=== PATIENT | male | born 1995 | race Caucasian/White ===

== ENCOUNTER → 2021-11-03 11:50 | Outpatient (CLI) | payer OTHER, SELFPAY ==
[2021-11-04 08:34] LABS: Covid-19 Nasal PCR Sendout Lex NOT DETECTED
== END ==
PROVIDERS: Visit Provider Nurse Practitioner
DX: Z20.822 Contact with and (suspected) exposure to COVID-19 (principal)
CPT/HCPCS: C9803; U0004; U0005

== ENCOUNTER 2025-05-29 16:16 | Emergency (ER) | payer OTHER, SELFPAY ==
[2025-05-29 16:25] VITALS: BP 129/81; PULSE 64; RESP 18; TEMP 36.6; O2SAT 100; BMI 34.9
--- NOTE | 2025-05-29 16:30 | ECG_ITS ---
APPROVED REPORT Exam: Resting ECG HR:60 bpm ECG Measurements Heart Rate 60 AXES DC 199 P 13 QRSd 98 QRS 21 QT 423 T 30 QTc 424 Conclusion SINUS RHYTHM NONSPECIFIC T-WAVE ABNORMALITY BORDERLINE ECG UNCONFIRMED REPORT Normal sinus rhythm. No ST elevation or depression. Isolated mild T wave inversions in lead V4 and V5. Electronically signed by : TRENTON GABRIEL, 05/30/2025 00:59:34
[2025-05-29 16:39] VITALS: PULSE 64
--- OUTSIDE RECORDS SUMMARY | 2025-05-29 16:41 | XMS_ITS | Encounter Summary ---
Author Organization [facility] ([place], [place], [place], [place]) Address [address] [place] [address] Care Team Providers Care Laundry Pricing Clerk Name Role Phone Margareth Mrogan Primary Care Provider Unavailable Reason for Referral * Consultation (Routine) - New Request Specialty Diagnoses / Procedures Referred By Holly rock Referred To Contact Cardiology Diagnoses Chest pain Margareth Morgan PA [address] [place] [address] Phone: tel: fax: Dilcia Stern PA-C [address] [place] [phone] Phone: tel: fax: Referral ID Status Reason Start Date Expiration Date Visits Requested Visits Authorized [id number] New Request Specialty Services Required 05/21/2025 05/21/2026 1 1 Encounter Details Date Type Department Care Team (Late Contact Info) Description 05/21/2025 Outside Orders [facility] Cardiology - [address] [phone] Margareth Morgan PA [address] [place] [phone] Chest pain (Primary Dx) Social History Tobacco Use Types Packs/Day Years Used Date Smoking Tobacco: Never Assessed Sex and Gender Information Value Date Recorded Sex Assigned at Not on file Legal Sex Male 7:34 AM CDT Gender Identity Not on file Sexual Orientation Not on file documented as of this encounter Plan of Treatment Upcoming Encounters Date Type Department Care Team (Late st Contact Info) Description 06/06/2025 10:15 AM EDT Office Visit [facility] Cardiology - [place] [address] [place] [address] Dilcia Stern PA-C [address] [facility] [address] [place] [address] Scheduled Referrals Name Type Priority Associated Diagnoses Order Schedule Ambulatory referral to Cardiology Outpatient Referral Routine Chest pain Expected: 05/21/2025, Expires: 05/21/2026 documented as of this encounter Visit Diagnoses Diagnosis Chest pain- Primary Unspecified chest pain Anxiety- Primary Anxiety state, unspecified Memory impairment Memory loss Mycosis Other and unspecified mycoses documented in this encounter Care Teams Laundry Pricing Clerk Relationship Specialty Start Date End Date Margareth Morgan PA [address] [place] [address] PCP - General Physician Re Dye Hand 05/21/25 documented as of this encounter
--- OUTSIDE RECORDS SUMMARY | 2025-05-29 16:41 | XMS_ITS | Clinical Summary ---
Author Organization [facility] ([place], [place], [place], [place]) Address [address] [place] [address] Care Team Providers Care Log Grader Name Role Phone Margareth Morgan Primary Care Provider Unavailable Allergies No known active allergies Medications amLODIPine (NORVASC) 10 MG tablet Take 1 tablet (10 mg total) by mouth daily. Active atorvastatin (LIPITOR) 20 MG tablet Take 1 tablet (20 mg total) by mouth nightly. Active cetirizine (ZyrTEC) 10 MG tablet Take 1 tablet (10 mg total) by mouth daily. Active esomeprazole (NexIUM) 40 MG capsule Take 1 capsule (40 mg total) by mouth Daily (0600). Active famotidine (PEPCID) 20 MG tablet Take 1 tablet (20 mg total) by mouth 2 (two) times daily. Active FLUoxetine (PROzac) 40 MG capsule Take 1 capsule (40 mg total) by mouth daily. Active hydroCHLOROthia zide (HYDRODIURIL) 25 MG tablet Take 1 tablet (25 mg total) by mouth daily. Active hydrOXYzine (ATARAX) 25 MG tablet Take 1 tablet (25 mg total) by mouth every 8 (eight) hours as needed for itching Look-alike/S ound-alike medication. Active losartan (COZAAR) 25 MG tablet Take 1 tablet (25 mg total) by mouth daily. Active metFORMIN (GLUCOPHAGE) 500 MG tablet Take 1 tablet (500 mg total) by mouth daily with breakfast Look-alike/S ound-alike medication. Active metoprolol succinate (TOPROL-XL) 50 MG 24 hr tablet Take 1 tablet (50 mg total) by mouth daily. Active montelukast (SINGULAIR) 10 mg tablet Take 1 tablet (10 mg total) by mouth nightly. Active traZODone (DESYREL) 100 MG tablet Take 1 tablet (100 mg total) by mouth nightly. Active albuterol 90 mcg/actuation inhaler Inhale by mouth every 6 (six) hours as needed for wheezing. Active Active Problems Problem Noted Date Diagnosed Date Chest pain Anxiety Asthma Diabetes GERD (gastroesophageal reflux disease) Hearing loss HLD (hyperlipidemia) HTN (hypertension) Insomnia Memory impairment Mycosis Encounters Date Type Department Care Team Description 05/21/2025 Outside Orders [facility] Cardiology [address] [phone] Margareth Morgan PA Chest pain (Primary Dx) from Last 3 Months Social History Tobacco Use Types Packs/Day Years Used Date Smoking Tobacco: Never Smokeless Tobacco: Never Tobacco Cessation:Counseling Given: Not Answered Alcohol Use Standard Drinks/Week Comments Not Currently 0 (1 standard drink = 0.6 oz pur e alcohol) Sex and Gender Information Value Date Recorded Sex Assigned at Not on file Legal Sex Male 7:34 AM CDT Gender Identity Not on file Sexual Orientation Not on file Plan of Treatment Upcoming Encounters Date Type Department Care Team (Late st Contact Info) Description 06/06/2025 10:15 AM EDT Office Visit [address] [phone] Dilcia Stern PA-C [address] [facility] [address] [place] [address] Health Maintenance Due Date Last Done Comments Diabetic Kidney Health Evalu ation (KED) 1995 Diabetic Eye Exam 2005 Depression Screening (12+) 2007 Tobacco Cessation Counseling and Screening (12+) 2007 HIV Screening 2010 Hepatitis C Screening 2013 Pneumococcal Vaccine: 0-49 Y ears (1 of 2 - PCV) 2014 Lipid Panel 2015 Hemoglobin A1C 05/22/2025 COVID-19 VACCINE ( - 2024-2 6 season) 2025 10/16/2021, 03/12/2021, 02/19/2021 Influenza Vaccine (#1) 2025 09/03/2020 DTAP/TDAP/TD VACCINES (6 - T d or Tdap) 05/25/2028 05/25/2018, 06/28/2007, 03/04/1999, Additional history exists Insurance [facility] Care Teams Log Grader Relationship Specialty Start Date End Date Margareth Morgan PA [address] [place] [phone] PCP - General Physician Customer Care Coordinator 05/21/25
--- OUTSIDE RECORDS SUMMARY | 2025-05-29 16:41 | XMS_ITS | Referral Summary ---
Author Organization [email or web address] ([place], [place], [place], [place]) Address [address] [place] [address] Care Team Providers Care Director Oncology Name Role Phone Margareth Morgan Primary Care Provider Unavailable Encounters Date Type Department Care Team Description 05/21/2025 Outside Orders [facility] Cardiology - [address] [phone] Margareth Morgan PA Chest pain (Primary Dx) from Last 3 Months Allergies No known active allergies Medications amLODIPine [...] (hyperlipidemia) HTN (hypertension) Insomnia Memory impairment Mycosis Social History Tobacco Use Types Packs/Day Years [...] Description 06/06/2025 10:15 AM EDT Office Visit [facility] Cardiology - [place] [address] [place] [address] Dilcia Stern PA-C [address] [phone] Insurance [facility] [facility] Care Teams Director Oncology Relationship Specialty Start Date End Date Margareth Morgan PA [address] [place] [phone] PCP - General Physician Audio Visual Aids Director 05/21/25
[2025-05-29 16:57] LABS: Albumin Level 5.0 g/dl (3.5-5.0); Chloride 99 mmol/L (98-107); Potassium 3.5 mmoL/L (3.5-5.1); Sodium 138 mmol/L (136-145)
[2025-05-29 16:59] LABS: Blood Urea Nitrogen 13 mg/dl (9-20); Creatinine Clearance Estimated 132 mL/min (50-200); Creatinine,Serum 1.10 mg/dl (0.66-1.25); Estimated Glomerular Filt Rate 79 ml/min (>60); GFR (African American) 95 ML/MIN (>60)
[2025-05-29 17:00] LABS: Alanine Aminotransferase 38 U/L (12-78); Albumin/Globulin Ratio 1.5 (1.1-1.8); Alkaline Phosphatase 73 U/L (38-126); Anion Gap 13.5 mEq/L (5-15); Aspartate Amino Transferase 43 U/L (17-59); Bilirubin,Total 0.7 mg/dl (0.2-1.3); Calcium 10.1 mg/dl (8.4-10.2); Carbon Dioxide 29 mmol/L (22.0-30.0); Globulin 3.3 g/dL (1.3-3.2); Glucose 164 mg/dl (74-100); Total Protein,Serum 8.3 g/dl (6.3-8.2)
[2025-05-29 17:01] LABS: Hematocrit 52.4 % (42.0-52.0); Hemoglobin 17.5 g/dL (14.1-18.0); Immature Granulocytes % 0.3 %; Mean Corpuscular HGB Conc 33.4 g/dL (31.8-35.4); Mean Corpuscular Hemoglobin 27.2 pg (27.0-31.2); Mean Corpuscular Volume 81.4 fl (80-94); Nucleated Red Blood Cells % 0 %; Platelet Count 312 K/mm3 (142-424); Red Blood Count 6.44 M/mm3 (4.60-6.20); Red Cell Distribution Width-SD 37.6 fL; White Blood Count 9.8 K/mm3 (4.8-10.8)
--- NOTE | 2025-05-29 17:07 | ED_ITS ---
<Statement entered by Marciano Heard MD - 05/30/25 04:10> I was consulted by the RUSTAM, and we discussed the complexity of the problems being addressed. I approve the treatment and management plan for this patient's care in the emergency department, thus performing a substantive portion of the medical decision making. Marciano Heard MD Discharge Plan Disposition Patient Disposition: Home, Self-Care Condition: Good Prescriptions Prescriptions: No Action metoprolol succinate 50 MG Tab.Er.24h 50 mg PO DAILY omeprazole magnesium [Prilosec OTC] 20 MG Tablet.Dr 20 mg PO DAILY cetirizine [Zyrtec] 10 MG Capsule 10 mg PO DAILY Referrals Follow up/Referrals: Margareth Morgan PA [Primary Care Provider, Medical] - See instructions Activity Restrictions/Add. Instructions Additional Instructions/Restrictions: You were evaluated on an emergency basis. It is very important that you follow- up with your primary care provider and any specialist who we discussed within the next 2 days in order to better assess your health more comprehensively. For example, incidental findings on imaging or laboratory results that were performed today may be discovered, which do not require immediate medical care, but may impact your health in the future. If your symptoms worsen or persist, please return to the emergency department immediately for reassessment. Take all medications as prescribed. In queue for allowing me to participate in your health care, and I hope you feel better soon. Clinical Impressions Clinical Impression: Chest pain Instructions Patient Instructions: DI for Chest Pain Print Language Print Language: Moroccan Discharge ED Provider: Marciano Heard [facility] General Chief Complaint: Chest Pain Stated Complaint: Physician referal sent bc of ekg reading Time Seen by Provider: 05/29/25 17:07 Mode of Arrival: Ambulatory Source of Information: Patient Description of Symptoms (Recalled from ER Triage Doc. by RN): patient presents to the ED from his primary care physician for an abnormal EKG. Patient states he is also feeling chest tightness. History of Present Illness HPI narrative: 30-year-old male presents emergency department with complaints of intermittent chest pain since yesterday. Patient reports he was seen in his primary care provider today to evaluate the chest pain when they informed him that his EKG was abnormal and sent to the ER for evaluation. Patient is unsure of what abnormalities were noted on the EKG and did not bring a copy of the EKG to the ER with him. He reports he has had the symptoms off and on for years and has been seen by cardiology in the past with an unremarkable workup. He denies shortness of breath, fevers, nausea, vomiting, diarrhea. Related Data Home Medications ?Medication ?Instructions ?Recorded ?Confirmed cetirizine 10 mg capsule (Zyrtec) 10 mg PO DAILY aller gies 05/30/18 05/30/18 metoprolol succinate 50 mg 50 mg PO DAILY bp 05/30/18 05/30/18 tablet,extended release 24 hr omeprazole magnesium 20 mg 20 mg PO DAILY stomach 01/1105/30/18 tablet,delayed release (Prilosec OTC) Allergies Allergy/AdvReac Type Severity Reaction Status Date / Time No Known Allergies Allergy Verified 05/26/18 09:56 [facility] Disclaimer: The information contained in this section may have been updated after the patient was seen, as this information can be updated by other users. Social History Smoking Status: Never smoker alcohol intake: never current occupational status: employed Travel in the last 8 weeks?: None household members: family housing: house current occupation: [employer] current occupational exposures/hazards: No caffeine: Yes Have you lived/traveled outside US in past 30 days?: No Contact w/someone who lives/traveled outside US past 30 days?: No Exposure to someone with infectious disease in past 14 days?: No Do you have a fever (greater than 100.4 F or 38 C)?: No Have you tested positive for COVID-19?: No Exposed to someone with COVID-19 in past 14 days?: No Do you have a sore throat?: No Do you have a cough?: No Do you have any weakness?: No Do you have any diarrhea?: No Are you experiencing any unusual bleeding?: No Do you have any muscle aches/pain?: No Do you have any abdominal pain?: No Are you experiencing loss of taste or smell?: No Other Medical History Have you received the Flu Vaccine for this season: No Have you received the Pneumonia Vaccine: No ROS Obtained: Yes other Cardiovascular Cardiovascular: Reports chest pain Physical Exam Narrative Physical exam: General: Awake, aware, in no acute distress HEENT: Normocephalic, no evidence of trauma CV: RRR, no murmurs, rubs, or gallops Pulm: CTA bilaterally with no rhonchi, rales, wheezes ABD: Nontender, no swelling, guarding, or rebound tenderness Psych, appropriate mood and affect General General appearance: alert Respiratory Respiratory exam: Present normal lung sounds bilaterally Cardiovascular Cardiovascular exam: Present regular rate Neurological Exam Neurological exam: Present alert HEART Score HEART Score HEART Score assessment performed?: Yes History (anamnesis): Slightly suspicious ECG: Normal Age: <45 years Risk factors: No known risk factors Troponin: </= normal limit HEART Score: 0 Critical Care Critical Care Time Critical Care Time: No Medical Decision Making [place] Inquiry Pt receiving controlled substance: No Vital Signs Vital Signs: 05/29/25 16:25 05/29/25 16:39 05/29/25 17:30 Temperature 97.8 F Temperature Source Temporal Artery Scan Pulse Rate 64 Pulse Rate [Left Radial] 64 Respiratory Rate 18 16 Blood Pressure 116/76 Blood Pressure [Left Arm] 129/81 Blood Pressure Mean [Left Arm] 97 Blood Pressure Source [Left Arm] Automatic Cuff Blood Pressure Position [Left Arm] Sitting 02 Sat by Pulse Oximetry 100 Oxygen Delivery Method Room Air 05/29/25 19:22 Temperature Temperature Source Pulse Rate 57 L Pulse Rate [Left Radial] Respiratory Rate 21 Blood Pressure 121/83 Blood Pressure [Left Arm] Blood Pressure Mean [Left Arm] Blood Pressure Source [Left Arm] Blood Pressure Position [Left Arm] 02 Sat by Pulse Oximetry 96 Oxygen Delivery Method Room Air Lab Data Labs: Lab Results 05/29/25 16:33: WBC 9.8, RBC 6.44 H, Hgb 17.5, Hct 52.4 H, MCV 81.4, MCH 27.2, MCHC 33.4, RDW 12.9, Plt Count 312, MPV 9.5, Neut % (Auto) 65.6, Lymph % (Auto) 24.0, Ward % (Auto) 6.7, Eos % (Auto) 2.8, Baso % (Auto) 0.6, Neut # (Auto) 6.4, Lymph # (Auto) 2.3, Ward # (Auto) 0.7, Eos # (Auto) 0.3, Baso # (Auto) 0.1, D- Dimer 0.31, Sodium 138, Potassium 3.5, Chloride 99, Carbon Dioxide 29, Anion Gap 13.5, BUN 13, Creatinine 1.10, Estimated Creat Clear 132, Estimated GFR 79, Est GFR ( Amer) 95, Glucose 164 H, Calcium 10.1, Magnesium 1.6, Total Bilirubin 0.7, AST 43, ALT 38, Alkaline Phosphatase 73, Troponin I < 0.01, Total Protein 8.3 H, Albumin 5.0, Globulin 3.3 H, Albumin/Globulin Ratio 1.5 05/29/25 19:10: Troponin I < 0.01 05/29/25 16:33 05/29/25 16:33 Response Orders (Tests/Meds): ED MEDICATIONS Discontinued Medications Generic Name Dose Route Start Last Admin Trade Name Freq PRN Reason Stop Dose Admin Aspirin 162 mg 05/29/25 17:13 05/29/25 17:38 Aspirin 81mg Chewable Tablet PO 05/29/25 17:14 162 mg ONCE ONE Administration Belladonna Alkaloids 60 ml 05/29/25 19:53 05/29/25 20:01 Belladonna Alkaloids 60 Ml Ml PO 05/29/25 19:54 60 ml ONCE ONE Administration ORDERS Category Date Time Status XR chest portable Stat Exams 05/29/25 17:09 Completed Complete Blood Count Auto Diff Stat Lab 05/29/25 16:33 Completed Comprehensive Metabolic Panel Stat Lab 05/29/25 16:33 Completed D-Dimer Stat Lab 05/29/25 16:33 Completed Magnesium Stat Lab 05/29/25 16:33 Completed Troponin I Q3H Lab 05/29/25 19:10 Completed Troponin I Q3H Lab 05/29/25 22:30 Ordered Troponin I Stat Lab 05/29/25 16:33 Completed MDM Narrative Medical Decision Narrative: Initial impression of presenting illness: 30-year-old male with a history of asthma presents emergency department with complaints of intermittent chest pain that started yesterday. He reports he was seen by his primary care provider today for evaluation of the chest pain when they noticed EKG abnormalities and symptoms the ER for evaluation. Patient is unsure of what abnormalities were noted and did not have a copy of the EKG with him. He states he has had intermittent chest pain for the past several years and was seen by cardiology in the past with unremarkable workup. He denies other symptoms at this time. Differential diagnosis includes but is not limited to: ACS, pneumonia, costochondritis, pleurisy Patient arrives hemodynamically stable, afebrile, without respiratory distress with vital signs interpreted by myself. Initial physical exam unremarkable Initial diagnostic plan: ACS workup including 162 mg of aspirin, D-dimer Results from initial plan were reviewed and interpreted by myself, pertinent positives include: Laboratory studies including serial troponins were nonactionable. Chest x-ray was also unremarkable for acute findings. Interventions in the ED: Patient was given GI cocktail with for pain control. Patient was made aware of the results and the findings, upon reevaluation patient has remained stable throughout stay, symptoms remain stable. Upon reevaluation patient is resting comfortably in bed with no signs of acute distress. His vital signs have also remained stable during his ER stay. Consultation/discussion with other physicians: Reviewed patient's presenting complaint as well as workup findings with the ED attending Dr. Delgadillo Disposition: Reviewed findings today's workup with patient informed no acute abnormalities were noted. Recommended that he continue taking all his previously prescribed medications. He reports that he has follow-up appointment scheduled with cardiology later this month. Longer recommended patient keep that appointment. Instructed patient to return immediately to the emergency department with any new or worsening symptoms including chest pain, shortness of breath, uncontrolled fevers. Patient is agreeable to plan of care. Patient made aware of findings and had a detailed discussion with symptomatic care and return precautions, patient voiced understanding.
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
[2025-05-29 17:14] LABS: Troponin I < 0.01 ng/ml (0.00-0.034)
[2025-05-29 17:30] VITALS: BP 116/76; RESP 16
[2025-05-29] MEDS: ASPIRIN 81MG CHEWABLE TABLET 162 MG PO (17:38)
[2025-05-29 17:42] LABS: D-Dimer 0.31 ug/mL (0.0-0.5)
[2025-05-29 19:01] LABS: Magnesium 1.6 mg/dl (1.6-2.3)
[2025-05-29 19:22] VITALS: BP 121/83; PULSE 57; RESP 21; O2SAT 96
[2025-05-29] MEDS: BELLADONNA ALKALOIDS 60 ML ML PO (20:01)
[2025-05-29 20:05] LABS: Troponin I < 0.01 ng/ml (0.00-0.034)
[2025-05-29 20:34] VITALS: BP 125/84; PULSE 55; RESP 12; TEMP 36.9; O2SAT 96
== END 2025-05-29 20:35 | disposition home or self-care (01) ==
PROVIDERS: Nurse Practitioner Family; Emergency Provider Student in an Organized Health Care Education/Training Program; PCP Physician Assistant
DX: R07.9 Chest pain, unspecified (principal)
CPT/HCPCS: 71045; 80053; 83735; 84484; 85025; 85378; 93005; 99284; 99285